=== PATIENT | male | born 2000 | race Caucasian/White ===

== ENCOUNTER 2022-01-14 02:06 | Emergency (ER) | payer BC, OTHER ==
[2022-01-14] MEDS ORDERED: Lidocaine/Transparent Dressing 1 EACH KIT ONE ×2 (03:35→03:41)
== END 2022-01-14 04:34 | disposition home or self-care (01) ==
LOC: CSHERS 02:06
DX: S06.0X9A Concussion with loss of consciousness of unspecified duration, initial encounter (principal); S01.01XA Laceration without foreign body of scalp, initial encounter; G62.9 Polyneuropathy, unspecified; Y04.8XXA Assault by other bodily force, initial encounter
CPT/HCPCS: 12002; 70450; 70486; 72125